=== PATIENT | male | born 1935 | race Caucasian/White ===

== ENCOUNTER 2020-03-21 08:52 | Outpatient (CLI) | payer MEDICARE, OTHER ==
[~2020-03-21] VITALS: Ht 172.7 cm; Wt 86.2 kg
[~2020-03-21 08:52] MED LIST: ADV50250 IH; ALBU8.5H4 IH; ASPI-41 PO; ATOR20TA PO; AZIT-63 PO; CALC-955 PO; CARCD120C PO; FOLI1TAB16 PO; GLUC100017; GUAI600T45 PO; METH2.5T17 PO; METO-395 PO; MULT-1179 PO; OMEP-84 PO; PANT-47 PO
[2020-03-21] MEDS ORDERED: albuterol 2.5 MG/3 ML nebule NEB PRN (09:40)
== END 2020-03-21 23:59 | disposition home or self-care (01) ==
LOC: RT 08:52
PROVIDERS: ATTEND Internal Medicine Cardiovascular Disease
DX: R94.2 Abnormal results of pulmonary function studies (principal); J44.9 Chronic obstructive pulmonary disease, unspecified
CPT/HCPCS: 94060; 94727; 94729; 94760

== ENCOUNTER 2020-03-28 08:08 | Day surgery (SDC) | payer MEDICARE, OTHER ==
[2020-03-28] VITALS (15 sets, daily range): BP systolic 138–182; BP diastolic 63–85
[~2020-03-28] VITALS: Ht 172.7 cm; Wt 88.1 kg
[2020-03-28] MEDS ORDERED: nitroGLYCERIN 0.4mg SUBLingual tab SL PRN (08:30)
[2020-03-28] MEDS ORDERED: normal saline 1,000 ML IV SCH (08:30)
[2020-03-28] MEDS ORDERED: LORazepam 0.5 MG tablet PO PRN (08:30)
[2020-03-28] MEDS ORDERED: diphenhydrAMINE 25mg capsule PO PRN (08:30)
[2020-03-28] MEDS ORDERED: FOLI0.8C PO (08:58)
[2020-03-28] MEDS ORDERED: ASPI-1264 PO ×2 (08:59→09:00)
[2020-03-28] MEDS ORDERED: DILT120T14 PO (09:01)
[2020-03-28] MEDS ORDERED: FURO-149 PO (09:04)
[2020-03-28] MEDS ORDERED: POTA10TA19 PO (09:04)
[2020-03-28 09:24] LABS: BASOPHILS % (AUTO) 0.6 % (0-1); EOSINOPHILS # (AUTO) 0.1 X10'3 (0-0.9); EOSINOPHILS % (AUTO) 1.6 % (0-6); HEMATOCRIT 36.8 % (42.0-52.0); HEMOGLOBIN 13.1 g/dl (14.0-17.9); LYMPHOCYTES # (AUTO) 0.7 X10'3 (1.1-4.8); LYMPHOCYTES % (AUTO) 15.2 % (21-51); MEAN CORPUSCULAR HEMOGLOBIN 32.4 PG (27.0-31.0); MEAN CORPUSCULAR HGB CONC 35.6 g/dL (33.0-36.5); MEAN PLATELET VOLUME 9.9 FL (7.4-10.4); MONOCYTES # (AUTO) 1.1 X10'3 (0-0.9); MONOCYTES % (AUTO) 23.5 % (2-12); NEUTROPHILS # (AUTO) 2.7 X10'3 (1.8-7.7); NEUTROPHILS % (AUTO) 59.1 % (42-75); PLATELET COUNT 85 X10'3 (140-440); RED BLOOD COUNT 4.04 X10'6 (4.70-6.10); RED CELL DISTRIBUTION WIDTH 12.4 % (11.5-14.5); WHITE BLOOD COUNT 4.5 X10'3 (4.5-11.0)
[2020-03-28 09:54] LABS: PLATELET ESTIMATE DECREASED; TOTAL CELLS COUNTED 100
[2020-03-28 09:59] LABS: PARTIAL THROMBOPLASTIN TIME 36 SECONDS (22-32)
[2020-03-28 10:08] LABS: ANION GAP 11 (8-16); BLOOD UREA NITROGEN 18 MG/DL (7-18); BUN/CREATININE RATIO 23.1 (5.4-32.0); CALCIUM 7.1 MG/DL (8.5-10.1); CHLORIDE 112 MMOL/L (99-107); CREATININE 0.78 MG/DL (0.60-1.10); GLUCOSE 81 MG/DL (70-104); POTASSIUM 3.5 MMOL/L (3.5-5.1); SODIUM 145 MMOL/L (135-145); TOTAL CARBON DIOXIDE 21.9 MMOL/L (24-32); eGFR > 90 ML/MIN
[2020-03-28] MEDS ORDERED: heparin 1,000 UNITS/NS 500ml 500 ML ONE ×4 (10:23→12:12)
[2020-03-28] MEDS ORDERED: midazolam 2 mg/2 ml injection ONE (10:23)
[2020-03-28] MEDS ORDERED: LIDOcaine 1% (10mg/ml)w/preservative injection 20ml MDV ONE ×2 (10:23→12:05)
[2020-03-28] MEDS ORDERED: iohexol 350MG/ML 100ml bottle IV ONE ×2 (10:23→12:12)
[2020-03-28] MEDS ORDERED: iohexol 350 MG/ML 50ML vial IV ONE ×3 (10:23→12:18)
[2020-03-28] MEDS ORDERED: fentaNYL/PF 50MCG/1 ML 2ML syringe ONE (10:23)
[2020-03-28] MEDS ORDERED: OXAZEpam 15mg capsule PO PRN (13:25)
[2020-03-28] MEDS ORDERED: proCHLORperazine 10 MG/2 ml inj IV PRN (13:25)
[2020-03-28] MEDS ORDERED: ondansetron/PF 4mg/2ml inj IV PRN (13:25)
[2020-03-28] MEDS ORDERED: HYDROcodone/acetaminophen 5mg/325mg tablet PO PRN (13:25)
[2020-03-28] MEDS ORDERED: HYDROcodone/acetaminophen 10/325mg tab PO PRN (13:25)
== END 2020-03-28 18:05 | disposition home or self-care (01) ==
LOC: SSTAY O 08:08
PROVIDERS: ATTEND Internal Medicine Cardiovascular Disease
DX: R94.39 Abnormal result of other cardiovascular function study (principal); I25.10 Atherosclerotic heart disease of native coronary artery without angina pectoris; I35.0 Nonrheumatic aortic (valve) stenosis; I25.82 Chronic total occlusion of coronary artery; I10 Essential (primary) hypertension; M06.9 Rheumatoid arthritis, unspecified; Z87.891 Personal history of nicotine dependence; Z79.01 Long term (current) use of anticoagulants; Z95.1 Presence of aortocoronary bypass graft; Z79.82 Long term (current) use of aspirin; Z79.899 Other long term (current) drug therapy; R06.02 Shortness of breath
CPT/HCPCS: 71046; 80048; 83880; 85025; 85610; 85730; 93005; 93461; 93567; 99152; 99153; C1769; J1644; J2001; J2250; J3010; J7030; Q0163; Q9967; 85007; A4620; A6258; C1751

== ENCOUNTER 2021-11-26 01:33 | Inpatient (IN) | payer MEDICARE, OTHER ==
[~2021-11-26] VITALS: Ht 172.7 cm; Wt 86.4 kg
[~2021-11-26 01:33] MED LIST changes: +ASPI-1264 PO; -ASPI-41 PO; -AZIT-63 PO; -CARCD120C PO; +DILT120T14 PO; +FOLI0.8C PO; -FOLI1TAB16 PO; +FURO-149 PO; -GUAI600T45 PO; -METH2.5T17 PO; -PANT-47 PO; +POTA-192 PO
[2021-11-26 02:08] LABS: ALANINE AMINOTRANSFERASE 49 U/L (12-78); ALBUMIN 4.1 G/DL (3.4-5.0); ALBUMIN/GLOBULIN RATIO 1.6 (1.1-1.5); ALKALINE PHOSPHATASE 68 IU/L (46-116); ANION GAP 14 (8-16); ASPARTATE AMINO TRANSFERASE 43 U/L (10-37); BILIRUBIN,TOTAL 3.7 MG/DL (0.1-1.0); BLOOD UREA NITROGEN 24 MG/DL (7-18); BUN/CREATININE RATIO 20.2 (5.4-32.0); CHLORIDE 106 MMOL/L (99-107); CREATININE 1.19 MG/DL (0.60-1.10); GLUCOSE 144 MG/DL (70-104); POTASSIUM 3.9 MMOL/L (3.5-5.1); SODIUM 144 MMOL/L (135-145); TOTAL CARBON DIOXIDE 23.6 MMOL/L (24-32); TOTAL PROTEIN 6.6 G/DL (6.4-8.2); eGFR 58 ML/MIN
[2021-11-26 02:20] LABS: EOSINOPHILS % (AUTO) 0.2 % (0-6); MEAN CORPUSCULAR HEMOGLOBIN 37.2 PG (27.0-31.0); MEAN PLATELET VOLUME 9.7 FL (7.4-10.4)
[2021-11-26 02:21] LABS: BASOPHILS % (AUTO) 0.1 % (0-1); HEMATOCRIT 23.6 % (42.0-52.0); LYMPHOCYTES # (AUTO) 1.7 X10'3 (1.1-4.8); LYMPHOCYTES % (AUTO) 16.3 % (21-51); MEAN CORPUSCULAR HGB CONC 33.9 g/dL (33.0-36.5); MEAN CORPUSCULAR VOLUME 109.8 FL (78-98); MONOCYTES # (AUTO) 2.2 X10'3 (0-0.9); MONOCYTES % (AUTO) 21.5 % (2-12); NEUTROPHILS # (AUTO) 6.4 X10'3 (1.8-7.7); NEUTROPHILS % (AUTO) 61.9 % (42-75); PLATELET COUNT 102 X10'3 (140-440); RED BLOOD COUNT 2.15 X10'6 (4.70-6.10); WHITE BLOOD COUNT 10.4 X10'3 (4.5-11.0)
[2021-11-26] MEDS ORDERED: nitroGLYCERIN 0.4mg SUBLingual tab SL PRN (02:50)
[2021-11-26] MEDS ORDERED: acetaminophen 325mg tablet PO PRN (02:50)
[2021-11-26] MEDS ORDERED: mag hydrox/Alum hydrox/simeth 30ml oral suspension PO PRN (02:50)
[2021-11-26 03:28] LABS: ANISOCYTOSIS 3+; NUCLEATED RED BLOOD CELLS 6 /100WBC (0-0); PLATELET ESTIMATE DECREASED; TOTAL CELLS COUNTED 100
[2021-11-26 03:31] LABS: POLYCHROMASIA FEW
[2021-11-26] MEDS: morphine 2 MG/ML inj. syringe IV PRN (04:17)
[2021-11-26] MEDS ORDERED: CARCD120C PO (05:24)
[2021-11-26] MEDS ORDERED: FLUT1DIS11 PO (05:24)
[2021-11-26] MEDS ORDERED: METO25TA6 PO (05:24)
--- NOTE | 2021-11-26 07:29 | NUR ---
Patient in room ED 3. I have received report from Alisha DEL CID and had the opportunity to ask questions and awaiting patients arrival.
[2021-11-26] MEDS ORDERED: SALMETEROL PO SCH (08:00)
[2021-11-26] MEDS ORDERED: aspirin 81mg, enteric-coated 1 TAB TABLET.DR PO SCH (08:00)
[2021-11-26] MEDS ORDERED: non-formulary drug (Glucosamine Sulfate 2Kcl (Glucosamine) 1 TAB) SCH (08:00)
[2021-11-26] MEDS ORDERED: furosemide 40mg tablet PO SCH (08:00)
[2021-11-26] MEDS: aspirin 325mg tablet PO SCH (08:00)
[2021-11-26] MEDS ORDERED: FLUTICASONE PO SCH (08:00)
[2021-11-26] MEDS ORDERED: non-formulary drug (Fluticasone/Salmeterol* (Advair 250-50 Diskus*) 1 INH) IH SCH (08:00)
[2021-11-26 09:00] VITALS: BP 154/72
[2021-11-26] MEDS: calcium carbonate/vitamin D3 tablet PO SCH ×2 (09:08→19:37)
[2021-11-26] MEDS: docusate sod 100mg capsule PO SCH ×2 (09:08→19:38)
[2021-11-26] MEDS: metoprolol tartrate 12.5mg (1/2 tablet) PO SCH (09:09)
[2021-11-26] MEDS: pantoprazole 40mg Tablet.DR PO SCH (09:09)
[2021-11-26] MEDS: multivitamins, therapeutics tablet PO SCH (09:10)
[2021-11-26] MEDS: potassium chloride 10mEq ER tablet PO SCH (09:10)
[2021-11-26] MEDS: diltiazem CD 120mg capsule (once-daily) PO SCH (09:10)
[2021-11-26] MEDS: albuterol 2.5 MG/3 ML nebule NEB SCH ×2 (09:39→20:37)
[2021-11-26] MEDS: budesonide 0.5mg/2ml UD nebule IH SCH ×2 (09:39→20:37)
[2021-11-26] MEDS: ondansetron/PF 4mg/2ml inj IV PRN (10:06)
[2021-11-26] MEDS ORDERED: furosemide 40mg/4ml inj IV ONE (10:10)
[2021-11-26 11:00] VITALS: BP 121/59
--- NOTE | 2021-11-26 14:41 | NUR ---
PAGER ID: [phone] MESSAGE: Chi, Tele 5482 Patient Firth [id number] states wants to be limited code, no chest compressions, no vent/intubation. Please update code. Thanks Paged Dr. Da Silva about code status SIVA Conn
[2021-11-26 15:00] VITALS: BP 115/64
[2021-11-26 18:00] VITALS: BP 115/64
--- NOTE | 2021-11-26 18:26 | NUR ---
Problems reprioritized. Patient report given, questions answered & plan of care reviewed with NEHEMIAS Osborne.
--- NOTE | 2021-11-26 18:35 | NUR ---
Gregory telephone worker [id number] patient humble [id number] clarified with staff that he is limited code. No intubation/ventilation and no chest compressions . Not DNR thanks Let gregory know during shift change after talking with patient to be clarified with Dr Da Silva . page was sent as above.
[2021-11-26] MEDS: furosemide 40mg/4ml inj IV SCH (19:37)
[2021-11-26] MEDS: atorvastatin 20mg tablet PO SCH (21:00)
[2021-11-26 22:00] VITALS: BP 110/56
[2021-11-27] MEDS: acetaminophen 325mg tablet PO PRN (00:45)
[2021-11-27 02:00] VITALS: BP 123/60
[2021-11-27] MEDS: albuterol 2.5 MG/3 ML nebule NEB SCH ×5 (02:34→21:00)
[2021-11-27] MEDS: morphine 2 MG/ML inj. syringe IV PRN ×2 (03:17→20:09)
[2021-11-27 06:00] VITALS: BP 154/62
--- NOTE | 2021-11-27 06:29 | NUR ---
Patient in room U 3023. I have received report from [place] DEL CID traveler and had the opportunity to ask questions and assume patient care.
[2021-11-27 06:45] LABS: BASOPHILS % (AUTO) 0.3 % (0-1); EOSINOPHILS % (AUTO) 0.2 % (0-6); MEAN CORPUSCULAR HGB CONC 34.4 g/dL (33.0-36.5); MONOCYTES # (AUTO) 2.6 X10'3 (0-0.9); RED BLOOD COUNT 1.98 X10'6 (4.70-6.10); WHITE BLOOD COUNT 12.3 X10'3 (4.5-11.0)
[2021-11-27 06:47] LABS: HEMATOCRIT 22.2 % (42.0-52.0); HEMOGLOBIN 7.6 g/dl (14.0-17.9); LYMPHOCYTES # (AUTO) 1.4 X10'3 (1.1-4.8); LYMPHOCYTES % (AUTO) 11.7 % (21-51); MEAN CORPUSCULAR HEMOGLOBIN 38.6 PG (27.0-31.0); MEAN CORPUSCULAR VOLUME 112.3 FL (78-98); MEAN PLATELET VOLUME 9.7 FL (7.4-10.4); MONOCYTES % (AUTO) 20.9 % (2-12); NEUTROPHILS # (AUTO) 8.2 X10'3 (1.8-7.7); NEUTROPHILS % (AUTO) 66.9 % (42-75); RED CELL DISTRIBUTION WIDTH 20.6 % (11.5-14.5)
[2021-11-27 06:50] LABS: PLATELET COUNT 102 X10'3 (140-440)
[2021-11-27 06:52] LABS: ALBUMIN 4.2 G/DL (3.4-5.0); ANION GAP 11 (8-16); BLOOD UREA NITROGEN 32 MG/DL (7-18); BUN/CREATININE RATIO 23.7 (5.4-32.0); CALCIUM 9.7 MG/DL (8.5-10.1); CHLORIDE 105 MMOL/L (99-107); CREATININE 1.35 MG/DL (0.60-1.10); GLUCOSE 115 MG/DL (70-104); HDL CHOLESTEROL 28 MG/DL (35-60); LDL CHOLESTEROL 47 MG/DL (50-100); POTASSIUM 3.7 MMOL/L (3.5-5.1); SODIUM 143 MMOL/L (135-145); TOTAL CARBON DIOXIDE 26.8 MMOL/L (24-32); eGFR 50 ML/MIN
[2021-11-27 07:00] LABS: CHOLESTEROL 83 MG/DL (0-200); TRIGLYCERIDES 149 MG/DL (20-135)
[2021-11-27 07:23] LABS: NUCLEATED RED BLOOD CELLS 4 /100WBC (0-0); PLATELET ESTIMATE DECREASED; TOTAL CELLS COUNTED 100
[2021-11-27 07:24] LABS: ANISOCYTOSIS 3+; POLYCHROMASIA 1+
[2021-11-27] MEDS: aspirin 325mg tablet PO SCH (07:56)
[2021-11-27] MEDS: docusate sod 100mg capsule PO SCH ×2 (07:57→19:37)
[2021-11-27] MEDS: calcium carbonate/vitamin D3 tablet PO SCH ×2 (07:57→19:37)
[2021-11-27] MEDS: diltiazem CD 120mg capsule (once-daily) PO SCH (07:57)
[2021-11-27] MEDS: multivitamins, therapeutics tablet PO SCH (07:57)
[2021-11-27] MEDS: pantoprazole 40mg Tablet.DR PO SCH (07:58)
[2021-11-27] MEDS: metoprolol tartrate 12.5mg (1/2 tablet) PO SCH (08:00)
[2021-11-27] MEDS: furosemide 40mg/4ml inj IV SCH (08:01)
--- NOTE | 2021-11-27 09:07 | NUR ---
Malnutrition consult: Pt admitted w/ chest pain and anemia per EMR. Pt reports 2-13lb wt loss per MST, though current wt is consistent w/ wts from previous visits w/ earliest wt 91kg in 2009; pt appears to have relatively stable wt since then. Currently on Heart healthy diet pending PO intake. No edema noted and has normal muscle strength. At this time pt does not meet minimum criteria for malnutrition. Will continue to monitor. Addendum: 11/27/21 at [address] Amended: Links added.
[2021-11-27] MEDS: budesonide 0.5mg/2ml UD nebule IH SCH ×2 (09:28→21:00)
[2021-11-27 10:35] LABS: ALANINE AMINOTRANSFERASE 49 U/L (12-78); ALKALINE PHOSPHATASE 65 IU/L (46-116); ASPARTATE AMINO TRANSFERASE 46 U/L (10-37); BILIRUBIN,DIRECT 0.5 MG/DL (0-0.3)
[2021-11-27 10:37] LABS: ALBUMIN/GLOBULIN RATIO 1.8 (1.1-1.5); TOTAL PROTEIN 6.6 G/DL (6.4-8.2)
[2021-11-27 11:00] VITALS: BP 142/59
[2021-11-27 15:00] VITALS: BP 136/60
[2021-11-27] MEDS ORDERED: CefTRIAXone 2gm/D5W 50ml BAG 50 ML IV SCH (15:35)
--- NOTE | 2021-11-27 17:58 | NUR ---
PAGER ID: [phone] MESSAGE: bj Espino#[phone]- 24hr telli expiring today, would you like to keep it on another 24hrs?? please advise. Barbara Roque [facility] [phone]
[2021-11-27 18:00] VITALS: BP 150/59
--- NOTE | 2021-11-27 18:36 | NUR ---
Problems reprioritized. Patient report given, questions answered & plan of care reviewed with Brandon Paige Traveler.
[2021-11-27] MEDS: atorvastatin 20mg tablet PO SCH (20:21)
[2021-11-27 22:00] VITALS: BP 137/59
[2021-11-28] MEDS: albuterol 2.5 MG/3 ML nebule NEB SCH ×4 (03:00→20:28)
[2021-11-28] MEDS: morphine 2 MG/ML inj. syringe IV PRN ×2 (03:23→21:13)
[2021-11-28 06:31] LABS: ANION GAP 11 (8-16); BLOOD UREA NITROGEN 34 MG/DL (7-18); CHLORIDE 103 MMOL/L (99-107); CREATININE 1.17 MG/DL (0.60-1.10); GLUCOSE 109 MG/DL (70-104); POTASSIUM 3.5 MMOL/L (3.5-5.1); SODIUM 142 MMOL/L (135-145); TOTAL CARBON DIOXIDE 28.5 MMOL/L (24-32)
[2021-11-28 06:32] LABS: BUN/CREATININE RATIO 29.1 (5.4-32.0); CALCIUM 9.8 MG/DL (8.5-10.1); eGFR 59 ML/MIN
[2021-11-28 06:59] LABS: LYMPHOCYTES # (AUTO) 1.4 X10'3 (1.1-4.8); PLATELET COUNT 97 X10'3 (140-440); RED BLOOD COUNT 1.96 X10'6 (4.70-6.10)
[2021-11-28 07:00] VITALS: BP 148/63
[2021-11-28 07:00] LABS: BASOPHILS % (AUTO) 0.4 % (0-1); EOSINOPHILS % (AUTO) 0.2 % (0-6); HEMATOCRIT 22.1 % (42.0-52.0); HEMOGLOBIN 7.4 g/dl (14.0-17.9); MEAN CORPUSCULAR HGB CONC 33.7 g/dL (33.0-36.5); MEAN CORPUSCULAR VOLUME 112.9 FL (78-98); MEAN PLATELET VOLUME 10.3 FL (7.4-10.4); MONOCYTES # (AUTO) 2.8 X10'3 (0-0.9); NEUTROPHILS # (AUTO) 8.4 X10'3 (1.8-7.7); NEUTROPHILS % (AUTO) 66.4 % (42-75); RED CELL DISTRIBUTION WIDTH 20.3 % (11.5-14.5); WHITE BLOOD COUNT 12.6 X10'3 (4.5-11.0)
[2021-11-28 07:25] LABS: ANISOCYTOSIS 3+; LARGE PLATELETS FEW; NUCLEATED RED BLOOD CELLS 8 /100WBC (0-0); PLATELET ESTIMATE DECREASED; TOTAL CELLS COUNTED 100
[2021-11-28 07:26] LABS: POLYCHROMASIA 2+; TEAR DROP CELLS FEW
[2021-11-28] MEDS: budesonide 0.5mg/2ml UD nebule IH SCH ×2 (07:39→20:28)
[2021-11-28] MEDS: CefTRIAXone 2gm/NS 100ml IVPB 100 ML IV SCH (08:02)
[2021-11-28] MEDS: calcium carbonate/vitamin D3 tablet PO SCH ×2 (08:03→20:18)
[2021-11-28] MEDS: multivitamins, therapeutics tablet PO SCH (08:03)
[2021-11-28] MEDS: aspirin 325mg tablet PO SCH (08:03)
[2021-11-28] MEDS: docusate sod 100mg capsule PO SCH ×2 (08:03→20:18)
[2021-11-28] MEDS: potassium chloride 10mEq ER tablet PO SCH (08:03)
[2021-11-28] MEDS: diltiazem CD 120mg capsule (once-daily) PO SCH (08:03)
[2021-11-28] MEDS: pantoprazole 40mg Tablet.DR PO SCH (08:03)
[2021-11-28] MEDS: metoprolol tartrate 12.5mg (1/2 tablet) PO SCH (08:04)
[2021-11-28 11:00] VITALS: BP 134/63
[2021-11-28] MEDS ORDERED: VANCOmycin 2,000MG in NS 500ml IV soln IV ONE (13:00)
[2021-11-28 15:00] VITALS: BP 150/57
[2021-11-28 18:00] VITALS: BP 142/69
[2021-11-28] MEDS: atorvastatin 20mg tablet PO SCH (20:18)
[2021-11-28 22:00] VITALS: BP 139/60
[2021-11-29 02:00] VITALS: BP 143/77
[2021-11-29] MEDS: albuterol 2.5 MG/3 ML nebule NEB SCH ×4 (02:55→20:53)
[2021-11-29 06:00] VITALS: BP 102/63
--- NOTE | 2021-11-29 06:24 | NUR ---
Change of shift report given to NEHEMIAS Medrano Pt stable. No acute complaints
--- NOTE | 2021-11-29 06:30 | NUR ---
Patient in room PCU 3023. I have received report from NEHEMIAS Robertson and had the opportunity to ask questions and assume patient care.
[2021-11-29 07:01] LABS: LYMPHOCYTES # (AUTO) 1.1 X10'3 (1.1-4.8); MEAN PLATELET VOLUME 9.8 FL (7.4-10.4); MONOCYTES # (AUTO) 2.6 X10'3 (0-0.9)
[2021-11-29 07:03] LABS: BASOPHILS % (AUTO) 0.2 % (0-1); EOSINOPHILS % (AUTO) 0.1 % (0-6); LYMPHOCYTES % (AUTO) 8.7 % (21-51); MEAN CORPUSCULAR HEMOGLOBIN 38.9 PG (27.0-31.0); MEAN CORPUSCULAR HGB CONC 33.7 g/dL (33.0-36.5); MEAN CORPUSCULAR VOLUME 115.5 FL (78-98); MONOCYTES % (AUTO) 20.6 % (2-12); NEUTROPHILS % (AUTO) 70.4 % (42-75); PLATELET COUNT 91 X10'3 (140-440); RED BLOOD COUNT 1.73 X10'6 (4.70-6.10); RED CELL DISTRIBUTION WIDTH 20.7 % (11.5-14.5); WHITE BLOOD COUNT 12.7 X10'3 (4.5-11.0)
[2021-11-29 07:05] LABS: ALBUMIN 3.7 G/DL (3.4-5.0); ANION GAP 10 (8-16); BLOOD UREA NITROGEN 35 MG/DL (7-18); BUN/CREATININE RATIO 30.4 (5.4-32.0); CALCIUM 9.2 MG/DL (8.5-10.1); CHLORIDE 105 MMOL/L (99-107); CREATININE 1.15 MG/DL (0.60-1.10); GLUCOSE 107 MG/DL (70-104); POTASSIUM 3.5 MMOL/L (3.5-5.1); SODIUM 142 MMOL/L (135-145); TOTAL CARBON DIOXIDE 27.4 MMOL/L (24-32); eGFR 60 ML/MIN
[2021-11-29 07:07] LABS: HEMOGLOBIN 6.7 g/dl (14.0-17.9)
--- NOTE | 2021-11-29 07:11 | NUR ---
PAGER ID: [phone] MESSAGE: Room: 3023A: [place]: Pt's hemoglobin is 6.7 and hematocrit: 20.0. NEHEMIAS Tapia [phone]
[2021-11-29 07:19] LABS: ANISOCYTOSIS 3+; NUCLEATED RED BLOOD CELLS 6 /100WBC (0-0); PLATELET ESTIMATE DECREASED; TOTAL CELLS COUNTED 100
[2021-11-29 07:20] LABS: POLYCHROMASIA 3+
[2021-11-29] MEDS: pantoprazole 40mg Tablet.DR PO SCH (08:00)
[2021-11-29] MEDS: multivitamins, therapeutics tablet PO SCH (08:00)
[2021-11-29] MEDS: metoprolol tartrate 12.5mg (1/2 tablet) PO SCH (08:00)
[2021-11-29] MEDS: CefTRIAXone 2gm/NS 100ml IVPB 100 ML IV SCH (08:00)
[2021-11-29] MEDS: diltiazem CD 120mg capsule (once-daily) PO SCH (08:00)
[2021-11-29] MEDS: calcium carbonate/vitamin D3 tablet PO SCH ×2 (08:00→20:45)
[2021-11-29] MEDS: docusate sod 100mg capsule PO SCH ×2 (08:00→20:45)
[2021-11-29] MEDS: aspirin 325mg tablet PO SCH (08:00)
--- NOTE | 2021-11-29 08:06 | NUR ---
PAGER ID: [phone] MESSAGE: Room: 1257N: [place]: Would you like to order blood? NEHEMIAS Tapia [phone]
[2021-11-29] MEDS: budesonide 0.5mg/2ml UD nebule IH SCH ×2 (08:34→20:53)
[2021-11-29 09:43] LABS: HAPTOGLOBIN <10 mg/dL (38-329)
[2021-11-29] MEDS: acetaminophen 325mg tablet PO PRN (10:02)
--- NOTE | 2021-11-29 10:30 | NUR ---
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 They will let me know the result of this test as soon as they can. Regina, RN [phone]
[2021-11-29 11:00] VITALS: BP 145/63
[2021-11-29] MEDS: vancomycin/NS 1 GM ADD-VANTAGE 250 ML IV SCH (13:04)
[2021-11-29 15:00] VITALS: BP 116/59
[2021-11-29] MEDS: morphine 2 MG/ML inj. syringe IV PRN (16:02)
[2021-11-29 18:00] VITALS: BP 155/56
--- NOTE | 2021-11-29 18:24 | NUR ---
Problems reprioritized. Patient report given, questions answered & plan of care reviewed with NEHEMIAS Osborne.
[2021-11-29] MEDS: atorvastatin 20mg tablet PO SCH (20:45)
[2021-11-29] MEDS: magnesium hydroxide 30ml (MOM) UD suspension PO PRN (20:46)
[2021-11-29 22:00] VITALS: BP 143/56
[2021-11-30 02:00] VITALS: BP 145/56
--- NOTE | 2021-11-30 02:10 | NUR ---
Called lab to follow-up on pts blood from [place]. Lab states we are still waiting and they will inform me when the blood has arrived.
[2021-11-30] MEDS: albuterol 2.5 MG/3 ML nebule NEB SCH ×4 (02:56→22:31)
[2021-11-30 06:00] VITALS: BP 151/66
--- NOTE | 2021-11-30 06:18 | NUR ---
Informed by lab that the pts blood has arrived to the blood bank. Informed blood bank that I will relay this information to day shift RN.
[2021-11-30 07:07] LABS: EOSINOPHILS % (AUTO) 0.3 % (0-6); HEMOGLOBIN 7.5 g/dl (14.0-17.9)
[2021-11-30 07:11] LABS: BASOPHILS % (AUTO) 0.2 % (0-1); HEMATOCRIT 22.6 % (42.0-52.0); LYMPHOCYTES # (AUTO) 1.1 X10'3 (1.1-4.8); MEAN CORPUSCULAR HEMOGLOBIN 38.9 PG (27.0-31.0); MEAN CORPUSCULAR VOLUME 117.7 FL (78-98); MEAN PLATELET VOLUME 9.7 FL (7.4-10.4); MONOCYTES # (AUTO) 2.7 X10'3 (0-0.9); NEUTROPHILS # (AUTO) 8.8 X10'3 (1.8-7.7); NEUTROPHILS % (AUTO) 69.5 % (42-75); PLATELET COUNT 99 X10'3 (140-440); RED BLOOD COUNT 1.92 X10'6 (4.70-6.10); RED CELL DISTRIBUTION WIDTH 20.9 % (11.5-14.5); WHITE BLOOD COUNT 12.6 X10'3 (4.5-11.0)
[2021-11-30 07:24] LABS: ALANINE AMINOTRANSFERASE 38 U/L (12-78); ALBUMIN 4.1 G/DL (3.4-5.0); ALKALINE PHOSPHATASE 71 IU/L (46-116); ANION GAP 9 (8-16); ASPARTATE AMINO TRANSFERASE 54 U/L (10-37); BILIRUBIN,TOTAL 5.2 MG/DL (0.1-1.0); BLOOD UREA NITROGEN 34 MG/DL (7-18); BUN/CREATININE RATIO 31.5 (5.4-32.0); CALCIUM 9.4 MG/DL (8.5-10.1); CHLORIDE 106 MMOL/L (99-107); CREATININE 1.08 MG/DL (0.60-1.10); GLUCOSE 106 MG/DL (70-104); POTASSIUM 3.6 MMOL/L (3.5-5.1); SODIUM 144 MMOL/L (135-145); TOTAL CARBON DIOXIDE 28.8 MMOL/L (24-32); eGFR 65 ML/MIN
[2021-11-30 07:25] LABS: ALBUMIN/GLOBULIN RATIO 1.6 (1.1-1.5); TOTAL PROTEIN 6.6 G/DL (6.4-8.2)
[2021-11-30 07:49] LABS: ANISOCYTOSIS 3+; NUCLEATED RED BLOOD CELLS 5 /100WBC (0-0); PLATELET ESTIMATE DECREASED; TOTAL CELLS COUNTED 100
[2021-11-30 07:50] LABS: POIKILOCYTOSIS FEW; POLYCHROMASIA 3+; TARGET CELLS FEW
[2021-11-30] MEDS: potassium chloride 10mEq ER tablet PO SCH (08:31)
[2021-11-30] MEDS: docusate sod 100mg capsule PO SCH ×2 (08:31→19:51)
[2021-11-30] MEDS: diltiazem CD 120mg capsule (once-daily) PO SCH (08:31)
[2021-11-30] MEDS: metoprolol tartrate 12.5mg (1/2 tablet) PO SCH (08:31)
[2021-11-30] MEDS: aspirin 325mg tablet PO SCH (08:31)
[2021-11-30] MEDS: multivitamins, therapeutics tablet PO SCH (08:32)
[2021-11-30] MEDS: calcium carbonate/vitamin D3 tablet PO SCH ×2 (08:32→19:52)
[2021-11-30] MEDS: pantoprazole 40mg Tablet.DR PO SCH (08:32)
[2021-11-30] MEDS: CefTRIAXone 2gm/NS 100ml IVPB 100 ML IV SCH (08:33)
[2021-11-30] MEDS: budesonide 0.5mg/2ml UD nebule IH SCH ×2 (09:00→21:00)
[2021-11-30] MEDS: acetaminophen 325mg tablet PO PRN (09:58)
[2021-11-30 11:00] VITALS: BP 126/57
[2021-11-30 11:18] LABS: RHEUM FACTOR QUAL REFLEX TITER NEGATIVE (Neg)
[2021-11-30] MEDS: vancomycin/NS 1 GM ADD-VANTAGE 250 ML IV SCH (13:44)
[2021-11-30 17:00] VITALS: BP 137/62
[2021-11-30 18:00] VITALS: BP 134/50
[2021-11-30] MEDS: predniSONE 20 mg tablet PO SCH (19:52)
[2021-11-30] MEDS: atorvastatin 20mg tablet PO SCH (19:52)
[2021-11-30] MEDS: morphine 2 MG/ML inj. syringe IV PRN (21:54)
[2021-11-30 22:30] VITALS: BP 149/69
[2021-12-01] MEDS: albuterol 2.5 MG/3 ML nebule NEB SCH ×4 (01:33→20:02)
[2021-12-01 03:00] VITALS: BP 137/74
[2021-12-01 06:00] VITALS: BP 156/56
[2021-12-01 06:53] LABS: ALBUMIN 3.8 G/DL (3.4-5.0); ANION GAP 10 (8-16); BLOOD UREA NITROGEN 35 MG/DL (7-18); BUN/CREATININE RATIO 32.1 (5.4-32.0); CALCIUM 9.4 MG/DL (8.5-10.1); CHLORIDE 106 MMOL/L (99-107); CREATININE 1.09 MG/DL (0.60-1.10); GLUCOSE 142 MG/DL (70-104); POTASSIUM 4.2 MMOL/L (3.5-5.1); SODIUM 143 MMOL/L (135-145); eGFR 64 ML/MIN
[2021-12-01 07:06] LABS: EOSINOPHILS % (AUTO) 0.1 % (0-6); MEAN PLATELET VOLUME 10.1 FL (7.4-10.4); WHITE BLOOD COUNT 13.1 X10'3 (4.5-11.0)
[2021-12-01 07:07] LABS: BASOPHILS % (AUTO) 0.2 % (0-1); LYMPHOCYTES % (AUTO) 7.7 % (21-51); MEAN CORPUSCULAR HEMOGLOBIN 38.4 PG (27.0-31.0); MEAN CORPUSCULAR HGB CONC 32.6 g/dL (33.0-36.5); MEAN CORPUSCULAR VOLUME 117.9 FL (78-98); MONOCYTES # (AUTO) 1.2 X10'3 (0-0.9); MONOCYTES % (AUTO) 9.4 % (2-12); NEUTROPHILS # (AUTO) 10.8 X10'3 (1.8-7.7); NEUTROPHILS % (AUTO) 82.6 % (42-75); PLATELET COUNT 98 X10'3 (140-440); RED BLOOD COUNT 1.82 X10'6 (4.70-6.10); RED CELL DISTRIBUTION WIDTH 19.8 % (11.5-14.5)
[2021-12-01 07:15] LABS: HEMATOCRIT 21.5 % (42.0-52.0)
[2021-12-01 07:46] LABS: NUCLEATED RED BLOOD CELLS 19 /100WBC (0-0); TOTAL CELLS COUNTED 100
[2021-12-01 07:51] LABS: ANISOCYTOSIS 2+; PLATELET ESTIMATE DECREASED; POLYCHROMASIA 3+; SPHEROCYTES 1+; STOMATOCYTES FEW; TEAR DROP CELLS 1+
[2021-12-01 07:52] LABS: LARGE PLATELETS FEW
[2021-12-01] MEDS: budesonide 0.5mg/2ml UD nebule IH SCH ×2 (09:00→20:03)
[2021-12-01] MEDS: aspirin 325mg tablet PO SCH (09:53)
[2021-12-01] MEDS: CefTRIAXone 2gm/NS 100ml IVPB 100 ML IV SCH (09:53)
[2021-12-01] MEDS: multivitamins, therapeutics tablet PO SCH (09:53)
[2021-12-01] MEDS: docusate sod 100mg capsule PO SCH ×2 (09:53→19:54)
[2021-12-01] MEDS: diltiazem CD 120mg capsule (once-daily) PO SCH (09:53)
[2021-12-01] MEDS: predniSONE 20 mg tablet PO SCH (09:53)
[2021-12-01] MEDS: calcium carbonate/vitamin D3 tablet PO SCH ×2 (09:53→19:54)
[2021-12-01] MEDS: pantoprazole 40mg Tablet.DR PO SCH (09:54)
[2021-12-01] MEDS: metoprolol tartrate 12.5mg (1/2 tablet) PO SCH (09:54)
--- NOTE | 2021-12-01 10:44 | NUR ---
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 Currently on Heart Healthy diet w/ avg intake 67% x 11 meals partially meeting needs. Recommend liberalizing to Regular diet in view of age and lipid panel. Will also provide smoothies BID for additional calories/protein. LBM 11/25 receiving routine and PRN bowel care. Will continue to monitor. Recs; 1. Liberalize to Regular diet 2. Smoothies BIDBD 3. Routine bowel care; 5 days constipation 4. Weekly wts Addendum: 12/01/21 at [address] Amended: Links added.
[2021-12-01 11:00] VITALS: BP 148/63
[2021-12-01] MEDS ORDERED: VANCOMYCIN LEVEL IV ONE (12:30)
[2021-12-01] MEDS: vancomycin/NS 1 GM ADD-VANTAGE 250 ML IV SCH (13:26)
[2021-12-01 15:00] VITALS: BP 157/67
[2021-12-01 18:00] VITALS: BP 149/68
[2021-12-01] MEDS: atorvastatin 20mg tablet PO SCH (19:54)
[2021-12-01 22:00] VITALS: BP 142/64
[2021-12-01] MEDS: morphine 2 MG/ML inj. syringe IV PRN (22:34)
[2021-12-01] MEDS: magnesium hydroxide 30ml (MOM) UD suspension PO PRN (22:49)
[2021-12-02 02:00] VITALS: BP 160/71
[2021-12-02] MEDS: albuterol 2.5 MG/3 ML nebule NEB SCH ×4 (02:59→21:00)
[2021-12-02] MEDS: potassium chloride 10mEq ER tablet PO SCH (08:00)
[2021-12-02] MEDS ORDERED: predniSONE 20 mg tablet PO SCH (08:00)
[2021-12-02 08:44] LABS: EOSINOPHILS % (AUTO) 0 % (0-6); HEMATOCRIT 22.8 % (42.0-52.0); HEMOGLOBIN 7.2 g/dl (14.0-17.9)
[2021-12-02 08:46] LABS: BASOPHILS % (AUTO) 0.1 % (0-1); LYMPHOCYTES % (AUTO) 10.7 % (21-51); MEAN CORPUSCULAR HGB CONC 31.4 g/dL (33.0-36.5); MEAN CORPUSCULAR VOLUME 120.9 FL (78-98); MEAN PLATELET VOLUME 9.8 FL (7.4-10.4); MONOCYTES # (AUTO) 3.8 X10'3 (0-0.9); MONOCYTES % (AUTO) 20.7 % (2-12); NEUTROPHILS # (AUTO) 12.6 X10'3 (1.8-7.7); NEUTROPHILS % (AUTO) 68.5 % (42-75); PLATELET COUNT 110 X10'3 (140-440); RED BLOOD COUNT 1.88 X10'6 (4.70-6.10); RED CELL DISTRIBUTION WIDTH 22.1 % (11.5-14.5); WHITE BLOOD COUNT 18.5 X10'3 (4.5-11.0)
[2021-12-02 09:00] LABS: ALBUMIN 3.8 G/DL (3.4-5.0); ANION GAP 10 (8-16); BLOOD UREA NITROGEN 36 MG/DL (7-18); BUN/CREATININE RATIO 31.3 (5.4-32.0); CALCIUM 9.2 MG/DL (8.5-10.1); CHLORIDE 105 MMOL/L (99-107); CREATININE 1.15 MG/DL (0.60-1.10); GLUCOSE 140 MG/DL (70-104); POTASSIUM 3.8 MMOL/L (3.5-5.1); SODIUM 141 MMOL/L (135-145); TOTAL CARBON DIOXIDE 25.8 MMOL/L (24-32); eGFR 60 ML/MIN
[2021-12-02] MEDS: budesonide 0.5mg/2ml UD nebule IH SCH ×2 (09:00→21:00)
[2021-12-02 09:16] LABS: NUCLEATED RED BLOOD CELLS 12 /100WBC (0-0); TOTAL CELLS COUNTED 100
[2021-12-02 09:17] LABS: ANISOCYTOSIS 3+; PLATELET ESTIMATE DECREASED; POLYCHROMASIA 3+; SPHEROCYTES 1+; TEAR DROP CELLS FEW
[2021-12-02] MEDS: multivitamins, therapeutics tablet PO SCH (09:35)
[2021-12-02] MEDS: CefTRIAXone 2gm/NS 100ml IVPB 100 ML IV SCH (09:35)
[2021-12-02] MEDS: pantoprazole 40mg Tablet.DR PO SCH (09:36)
[2021-12-02] MEDS: diltiazem CD 120mg capsule (once-daily) PO SCH (09:36)
[2021-12-02] MEDS: metoprolol tartrate 12.5mg (1/2 tablet) PO SCH (09:36)
[2021-12-02] MEDS: calcium carbonate/vitamin D3 tablet PO SCH ×2 (09:36→20:21)
[2021-12-02] MEDS: docusate sod 100mg capsule PO SCH ×2 (09:36→20:21)
[2021-12-02] MEDS: aspirin 325mg tablet PO SCH (09:36)
[2021-12-02] MEDS: acetaminophen 325mg tablet PO PRN (09:38)
[2021-12-02] MEDS: VANCOmycin 1250MG/NS 250ml Bag 250 ML IV SCH (13:04)
[2021-12-02 18:00] VITALS: BP 148/62
--- NOTE | 2021-12-02 18:58 | NUR ---
Patient in room PCU 3023. I have received report from Gonzalo DEL CID and had the opportunity to ask questions and assume patient care.
--- NOTE | 2021-12-02 18:59 | NUR ---
Patient in room PCU 3023. I have received report from maritza kevin and had the opportunity to ask questions and assume patient care.
[2021-12-02] MEDS: morphine 2 MG/ML inj. syringe IV PRN (20:23)
[2021-12-02] MEDS: atorvastatin 20mg tablet PO SCH (21:21)
[2021-12-02 22:00] VITALS: BP 153/65
--- NOTE | 2021-12-02 23:55 | NUR ---
I have reviewed and agree with all interventions, assessments performed and documented by Aleksander PANIAGUA.
[2021-12-03] VITALS (14 sets, daily range): BP systolic 103–153; BP diastolic 46–76
[2021-12-03] MEDS: morphine 2 MG/ML inj. syringe IV PRN (02:25)
[2021-12-03] MEDS: albuterol 2.5 MG/3 ML nebule NEB SCH ×5 (03:00→19:50)
[2021-12-03 04:37] LABS: ALBUMIN 3.6 G/DL (3.4-5.0); ANION GAP 10 (8-16); BASOPHILS % (AUTO) 0.2 % (0-1); BLOOD UREA NITROGEN 38 MG/DL (7-18); BUN/CREATININE RATIO 34.9 (5.4-32.0); CALCIUM 9.1 MG/DL (8.5-10.1); CHLORIDE 106 MMOL/L (99-107); CREATININE 1.09 MG/DL (0.60-1.10); EOSINOPHILS % (AUTO) 0.1 % (0-6); GLUCOSE 109 MG/DL (70-104); LYMPHOCYTES # (AUTO) 1.3 X10'3 (1.1-4.8); LYMPHOCYTES % (AUTO) 8.2 % (21-51); MEAN CORPUSCULAR HEMOGLOBIN 38.4 PG (27.0-31.0); MEAN CORPUSCULAR HGB CONC 31.9 g/dL (33.0-36.5); MEAN CORPUSCULAR VOLUME 120.3 FL (78-98); MEAN PLATELET VOLUME 9.8 FL (7.4-10.4); MONOCYTES # (AUTO) 3.3 X10'3 (0-0.9); MONOCYTES % (AUTO) 21.3 % (2-12); NEUTROPHILS # (AUTO) 10.9 X10'3 (1.8-7.7); NEUTROPHILS % (AUTO) 70.2 % (42-75); PLATELET COUNT 93 X10'3 (140-440); RED BLOOD COUNT 1.63 X10'6 (4.70-6.10); RED CELL DISTRIBUTION WIDTH 20.9 % (11.5-14.5); SODIUM 143 MMOL/L (135-145); TOTAL CARBON DIOXIDE 26.7 MMOL/L (24-32); WHITE BLOOD COUNT 15.5 X10'3 (4.5-11.0); eGFR 64 ML/MIN
[2021-12-03 04:57] LABS: HEMATOCRIT 19.6 % (42.0-52.0); HEMOGLOBIN 6.3 g/dl (14.0-17.9)
--- NOTE | 2021-12-03 05:50 | NUR ---
Pt has critical H (6.3)&H(19.6) called into Dr. Reyes. Order for Type and Screen as well as 2 units of PRBC ordered
--- NOTE | 2021-12-03 06:30 | NUR ---
Problems reprioritized. Patient report given, questions answered & plan of care reviewed with israel kevin.
--- NOTE | 2021-12-03 06:30 | NUR ---
Problems reprioritized. Patient report given, questions answered & plan of care reviewed with Rosa DEL CID.
[2021-12-03] MEDS: aspirin 325mg tablet PO SCH (08:03)
[2021-12-03] MEDS: diltiazem CD 120mg capsule (once-daily) PO SCH (08:05)
[2021-12-03] MEDS: metoprolol tartrate 12.5mg (1/2 tablet) PO SCH (08:05)
[2021-12-03] MEDS: docusate sod 100mg capsule PO SCH ×2 (08:06→20:07)
[2021-12-03] MEDS: CefTRIAXone 2gm/NS 100ml IVPB 100 ML IV SCH (08:06)
[2021-12-03] MEDS: multivitamins, therapeutics tablet PO SCH (08:06)
[2021-12-03] MEDS: pantoprazole 40mg Tablet.DR PO SCH (08:06)
[2021-12-03] MEDS: calcium carbonate/vitamin D3 tablet PO SCH ×2 (08:06→20:05)
[2021-12-03 08:29] LABS: NUCLEATED RED BLOOD CELLS 13 /100WBC (0-0); TOTAL CELLS COUNTED 100
[2021-12-03 08:32] LABS: ANISOCYTOSIS 3+; PLATELET ESTIMATE DECREASED; POLYCHROMASIA 3+
[2021-12-03] MEDS: budesonide 0.5mg/2ml UD nebule IH SCH ×2 (08:37→19:49)
[2021-12-03] MEDS: ondansetron/PF 4mg/2ml inj IV PRN (09:06)
[2021-12-03] MEDS: VANCOmycin 1250MG/NS 250ml Bag 250 ML IV SCH (14:22)
[2021-12-03] MEDS: methylPREDNISolone sod succ 125mg/2ml vial IV SCH ×2 (16:34→20:10)
--- NOTE | 2021-12-03 18:36 | NUR ---
Patient in room PCU 3023. I have received report from Rosa DEL CID and had the opportunity to ask questions and assume patient care.
--- NOTE | 2021-12-03 19:53 | NUR ---
Patient in room PCU 3023. I have received report from nettie kevin and had the opportunity to ask questions and assume patient care.
[2021-12-03] MEDS: acetaminophen 325mg tablet PO PRN (20:06)
[2021-12-03] MEDS: atorvastatin 20mg tablet PO SCH (20:07)
[2021-12-03 21:17] LABS: HEMATOCRIT 24.6 % (42.0-52.0); MEAN CORPUSCULAR HEMOGLOBIN 34.1 PG (27.0-31.0); MEAN CORPUSCULAR HGB CONC 32.7 g/dL (33.0-36.5); MEAN CORPUSCULAR VOLUME 104.4 FL (78-98); MEAN PLATELET VOLUME 9.9 FL (7.4-10.4); PLATELET COUNT 88 X10'3 (140-440); RED BLOOD COUNT 2.35 X10'6 (4.70-6.10); RED CELL DISTRIBUTION WIDTH 30.8 % (11.5-14.5)
[2021-12-04 01:14] LABS: WHITE BLOOD COUNT 17.7 X10'3 (4.5-11.0)
[2021-12-04 02:00] VITALS: BP 140/49
[2021-12-04] MEDS: albuterol 2.5 MG/3 ML nebule NEB SCH ×4 (03:00→19:46)
--- NOTE | 2021-12-04 05:53 | NUR ---
I have reviewed and agree with all interventions, assessments performed and documented by Aleksander Champagne LVN.
[2021-12-04 06:00] VITALS: BP 141/58
--- NOTE | 2021-12-04 06:20 | NUR ---
Problems reprioritized. Patient report given, questions answered & plan of care reviewed with Irene DEL CID.
--- NOTE | 2021-12-04 06:20 | NUR ---
Problems reprioritized. Patient report given, questions answered & plan of care reviewed with tomy kevin.
--- NOTE | 2021-12-04 06:42 | NUR ---
Patient in room PCU 3023. I have received report from Graciela DEL CID and had the opportunity to ask questions and assume patient care.
[2021-12-04] MEDS: multivitamins, therapeutics tablet PO SCH (08:56)
[2021-12-04] MEDS: methylPREDNISolone sod succ 125mg/2ml vial IV SCH ×2 (08:56→20:50)
[2021-12-04] MEDS: CefTRIAXone 2gm/NS 100ml IVPB 100 ML IV SCH (08:56)
[2021-12-04] MEDS: metoprolol tartrate 12.5mg (1/2 tablet) PO SCH (08:59)
[2021-12-04] MEDS: docusate sod 100mg capsule PO SCH ×2 (08:59→20:16)
[2021-12-04] MEDS: calcium carbonate/vitamin D3 tablet PO SCH ×2 (09:00→20:16)
[2021-12-04] MEDS: potassium chloride 10mEq ER tablet PO SCH (09:00)
[2021-12-04] MEDS: budesonide 0.5mg/2ml UD nebule IH SCH ×2 (09:00→19:46)
[2021-12-04] MEDS: diltiazem CD 120mg capsule (once-daily) PO SCH (09:00)
[2021-12-04 10:37] LABS: EOSINOPHILS % (AUTO) 0 % (0-6); HEMATOCRIT 24.1 % (42.0-52.0); MEAN PLATELET VOLUME 9.6 FL (7.4-10.4); NEUTROPHILS # (AUTO) 10.9 X10'3 (1.8-7.7); PLATELET COUNT 90 X10'3 (140-440); RED BLOOD COUNT 2.27 X10'6 (4.70-6.10); WHITE BLOOD COUNT 14.7 X10'3 (4.5-11.0)
[2021-12-04 10:39] LABS: BASOPHILS % (AUTO) 0.3 % (0-1); HEMOGLOBIN 7.7 g/dl (14.0-17.9); LYMPHOCYTES # (AUTO) 1.1 X10'3 (1.1-4.8); LYMPHOCYTES % (AUTO) 7.2 % (21-51); MEAN CORPUSCULAR HEMOGLOBIN 34.1 PG (27.0-31.0); MEAN CORPUSCULAR VOLUME 106.3 FL (78-98); MONOCYTES # (AUTO) 2.7 X10'3 (0-0.9); MONOCYTES % (AUTO) 18.6 % (2-12); NEUTROPHILS % (AUTO) 73.9 % (42-75); RED CELL DISTRIBUTION WIDTH 31.1 % (11.5-14.5)
[2021-12-04 10:48] LABS: ALANINE AMINOTRANSFERASE 40 U/L (12-78); ALBUMIN 3.3 G/DL (3.4-5.0); ALBUMIN/GLOBULIN RATIO 1.5 (1.1-1.5); ALKALINE PHOSPHATASE 53 IU/L (46-116); ANION GAP 10 (8-16); ASPARTATE AMINO TRANSFERASE 60 U/L (10-37); BLOOD UREA NITROGEN 37 MG/DL (7-18); BUN/CREATININE RATIO 36.3 (5.4-32.0); CALCIUM 8.5 MG/DL (8.5-10.1); CHLORIDE 107 MMOL/L (99-107); CREATININE 1.02 MG/DL (0.60-1.10); GLUCOSE 128 MG/DL (70-104); POTASSIUM 4.2 MMOL/L (3.5-5.1); SODIUM 141 MMOL/L (135-145); TOTAL CARBON DIOXIDE 23.8 MMOL/L (24-32); TOTAL PROTEIN 5.5 G/DL (6.4-8.2); eGFR 69 ML/MIN
[2021-12-04 11:00] VITALS: BP 140/67
[2021-12-04 11:43] LABS: NUCLEATED RED BLOOD CELLS 16 /100WBC (0-0); POLYCHROMASIA 2+; TOTAL CELLS COUNTED 100
[2021-12-04 11:44] LABS: ANISOCYTOSIS 3+; PLATELET ESTIMATE DECREASED
[2021-12-04 11:45] LABS: SPHEROCYTES 1+
[2021-12-04] MEDS: VANCOmycin 1250MG/NS 250ml Bag 250 ML IV SCH (13:12)
[2021-12-04 15:00] VITALS: BP 149/68
[2021-12-04 18:00] VITALS: BP 148/73
--- NOTE | 2021-12-04 19:00 | NUR ---
Patient in room PCU 3023. I have received report from tray kevin and had the opportunity to ask questions and assume patient care.
--- NOTE | 2021-12-04 19:57 | NUR ---
Patient in room PCU 3023. I have received report from NEHEMIAS Wood and had the opportunity to ask questions and assume patient care.
[2021-12-04] MEDS: atorvastatin 20mg tablet PO SCH (20:16)
[2021-12-04 22:00] VITALS: BP 165/72
--- NOTE | 2021-12-05 02:00 | NUR ---
pt refused 0200 vitals
[2021-12-05] MEDS: albuterol 2.5 MG/3 ML nebule NEB SCH ×3 (03:00→15:34)
[2021-12-05 06:00] VITALS: BP 155/75
--- NOTE | 2021-12-05 06:23 | NUR ---
Problems reprioritized. Patient report given, questions answered & plan of care reviewed with rhea kevin.
--- NOTE | 2021-12-05 06:26 | NUR ---
Problems reprioritized. Patient report given, questions answered & plan of care reviewed with NEHEMIAS Jimenez.
--- NOTE | 2021-12-05 06:32 | NUR ---
Patient in room PCU 3023. I have received report from Royer DEL CID/SIVA león and had the opportunity to ask questions and assume patient care.
[2021-12-05] MEDS: budesonide 0.5mg/2ml UD nebule IH SCH (07:20)
[2021-12-05] MEDS: metoprolol tartrate 12.5mg (1/2 tablet) PO SCH (08:38)
[2021-12-05] MEDS: diltiazem CD 120mg capsule (once-daily) PO SCH (08:38)
[2021-12-05] MEDS: CefTRIAXone 2gm/NS 100ml IVPB 100 ML IV SCH (08:38)
[2021-12-05] MEDS: multivitamins, therapeutics tablet PO SCH (08:38)
[2021-12-05] MEDS: docusate sod 100mg capsule PO SCH (08:38)
[2021-12-05] MEDS: calcium carbonate/vitamin D3 tablet PO SCH (08:38)
[2021-12-05] MEDS: methylPREDNISolone sod succ 125mg/2ml vial IV SCH (08:39)
[2021-12-05 11:00] VITALS: BP 155/76
[2021-12-05] MEDS ORDERED: VANCOMYCIN LEVEL IV ONE (12:30)
[2021-12-05] MEDS: VANCOmycin 1250MG/NS 250ml Bag 250 ML IV SCH (13:51)
[2021-12-05 15:00] VITALS: BP 144/69
--- NOTE | 2021-12-05 16:05 | NUR ---
Problems reprioritized. Patient report given, questions answered & plan of care reviewed with CANDELARIA DEL CID AT [facility].
--- NOTE | 2021-12-05 17:20 | NUR ---
Pt picked up by ambulance to transport to [facility] for continue care. Pt a A & O x4 and in no apparent distress. Report called into [facility] (Kimmy DEL CID) at [facility]. Pt took belongings with him, and send some home with .
== END 2021-12-05 17:16 | DRG 280 ==
LOC: ER 01:33 → ED HOLD 02:50 → PCU 3S 07:32 → OBSVTOIN 13:00
PROVIDERS: ADMIT Internal Medicine; ATTEND Family Medicine
PROC: 02HV33Z Insertion of Infusion Device into Superior Vena Cava, Percutaneous Approach (ICD-10-PCS; 2021-12-02)
PROC: B548ZZA Ultrasonography of Superior Vena Cava, Guidance (ICD-10-PCS; 2021-12-02)
PROC: 30233N1 Transfusion of Nonautologous Red Blood Cells into Peripheral Vein, Percutaneous Approach (ICD-10-PCS; principal; 2021-12-03)
DX: T82.6XXA Infection and inflammatory reaction due to cardiac valve prosthesis, initial encounter (principal); J96.01 Acute respiratory failure with hypoxia; I21.A1 Myocardial infarction type 2; I33.0 Acute and subacute infective endocarditis; N17.0 Acute kidney failure with tubular necrosis; D59.10 Autoimmune hemolytic anemia, unspecified; R44.3 Hallucinations, unspecified; I13.0 Hypertensive heart and chronic kidney disease with heart failure and stage 1 through stage 4 chronic kidney disease, or unspecified chronic kidney disease; I25.119 Atherosclerotic heart disease of native coronary artery with unspecified angina pectoris; Z66 Do not resuscitate; I50.9 Heart failure, unspecified; D69.6 Thrombocytopenia, unspecified; E78.5 Hyperlipidemia, unspecified; M06.9 Rheumatoid arthritis, unspecified; T38.0X5A Adverse effect of glucocorticoids and synthetic analogues, initial encounter; D63.8 Anemia in other chronic diseases classified elsewhere; Z20.822 Contact with and (suspected) exposure to COVID-19; K21.9 Gastro-esophageal reflux disease without esophagitis; N18.9 Chronic kidney disease, unspecified; R79.89 Other specified abnormal findings of blood chemistry; Y83.1 Surgical operation with implant of artificial internal device as the cause of abnormal reaction of the patient, or of later complication, without mention of misadventure at the time of the procedure; R16.1 Splenomegaly, not elsewhere classified; K80.20 Calculus of gallbladder without cholecystitis without obstruction; J44.9 Chronic obstructive pulmonary disease, unspecified; I25.2 Old myocardial infarction; Z90.49 Acquired absence of other specified parts of digestive tract; Z90.79 Acquired absence of other genital organ(s); Z95.1 Presence of aortocoronary bypass graft; Z82.3 Family history of stroke; Z82.5 Family history of asthma and other chronic lower respiratory diseases; Z79.899 Other long term (current) drug therapy; I35.8 Other nonrheumatic aortic valve disorders
CPT/HCPCS: 36415; 36430; 36573; 71045; 74176; 74181; 80048; 80053; 80061; 80076; 80202; 82607; 82948; 83010; 83540; 83550; 83615; 83880; 84443; 84484; 85007; 85025; 85027; 86038; 86157; 86430; 86611; 86638; 86870; 86880; 86885; 86900; 86901; 86902; 86905; 86920; 86922; 87040; 87081; 93005; 93306; 94640; 94760; 96374; 96375; 97116; 97161; 97530; 99285; C1751; G0378; J0696; J1940; J2270; J2405; J2930; J3370; J7040; J7512; P9016

== ENCOUNTER 2022-06-17 07:50 | Inpatient (IN) | payer MEDICARE, OTHER ==
[~2022-06-17] VITALS: Ht 172.7 cm; Wt 72.7 kg
[~2022-06-17 07:50] MED LIST changes: -ADV50250 IH; +CARCD120C PO; -DILT120T14 PO; +FLUT1DIS11 PO; -FOLI0.8C PO; -METO-395 PO; +METO25TA6 PO
[2022-06-17 08:37] LABS: BASOPHILS % (AUTO) 0.1 % (0-1); EOSINOPHILS % (AUTO) 0.2 % (0-6); HEMATOCRIT 24.3 % (42.0-52.0); HEMOGLOBIN 8.3 g/dl (14.0-17.9); LYMPHOCYTES # (AUTO) 0.8 X10'3 (1.1-4.8); LYMPHOCYTES % (AUTO) 7.1 % (21-51); MEAN CORPUSCULAR HEMOGLOBIN 29.8 PG (27.0-31.0); MEAN CORPUSCULAR HGB CONC 34.1 g/dL (33.0-36.5); MEAN CORPUSCULAR VOLUME 87.4 FL (78-98); MEAN PLATELET VOLUME 7.7 FL (7.4-10.4); MONOCYTES # (AUTO) 1.5 X10'3 (0-0.9); MONOCYTES % (AUTO) 12.6 % (2-12); NEUTROPHILS # (AUTO) 9.3 X10'3 (1.8-7.7); PLATELET COUNT 180 X10'3 (140-440); RED BLOOD COUNT 2.78 X10'6 (4.70-6.10); RED CELL DISTRIBUTION WIDTH 13.9 % (11.5-14.5); WHITE BLOOD COUNT 11.7 X10'3 (4.5-11.0)
[2022-06-17] MEDS ORDERED: pantoprazole 40mg IV 80 MG in normal saline 100ml IV soln 100 ML IV ONE (08:40)
[2022-06-17 08:49] LABS: ALANINE AMINOTRANSFERASE 15 U/L (12-78); ALKALINE PHOSPHATASE 61 IU/L (46-116); ANION GAP 7 (8-16); ASPARTATE AMINO TRANSFERASE 20 U/L (10-37); BILIRUBIN,TOTAL 0.6 MG/DL (0.1-1.0); BLOOD UREA NITROGEN 42 MG/DL (7-18); BUN/CREATININE RATIO 30.9 (5.4-32.0); CALCIUM 9.6 MG/DL (8.5-10.1); CHLORIDE 105 MMOL/L (99-107); CREATININE 1.36 MG/DL (0.60-1.10); GLUCOSE 134 MG/DL (70-104); LIPASE 166 U/L (73-393); POTASSIUM 4.6 MMOL/L (3.5-5.1); SODIUM 137 MMOL/L (135-145); TOTAL CARBON DIOXIDE 25.1 MMOL/L (24-32); eGFR 50 ML/MIN
[2022-06-17 08:58] LABS: APTT 33 SECONDS (22-32)
[2022-06-17 09:28] LABS: OCCULT BLOOD STOOL POSITIVE (Neg)
[2022-06-17] MEDS ORDERED: magnesium hydroxide 30ml (MOM) UD suspension PO PRN (10:15)
[2022-06-17] MEDS ORDERED: mag hydrox/Alum hydrox/simeth 30ml oral suspension PO PRN (10:15)
[2022-06-17] MEDS ORDERED: acetaminophen 325mg tablet PO PRN ×2 (10:15)
[2022-06-17] MEDS ORDERED: ondansetron/PF 4mg/2ml inj IV PRN (10:15)
[2022-06-17] MEDS ORDERED: morphine 2 MG/ML inj. syringe IV PRN (10:15)
[2022-06-17] MEDS: pantoprazole 40MG/NS 100ML BAG 100 ML IV SCH ×3 (11:07→19:54)
[2022-06-17] MEDS: normal saline 1000ml 1,000 ML IV SCH ×2 (11:08→20:03)
[2022-06-17] MEDS: morphine 2 MG/ML inj. syringe IV PRN ×2 (12:40→20:00)
--- NOTE | 2022-06-17 13:37 | NUR ---
relieving RN for lunch, pt is resting quietly on hospital bed, no beds available upstairs, pt to remain in ER, resp even and unlabored, pt is GCS 15, alert and oriented
--- NOTE | 2022-06-17 14:21 | NUR ---
Pt being escorted to GI lab for scope, via GI RN
[2022-06-17] MEDS ORDERED: MIDAZolam 1 MG/ML 5ML VIAL ONE (14:25)
[2022-06-17] MEDS ORDERED: fentaNYL/PF 50MCG/1 ML 2ML syringe ONE (14:25)
[2022-06-17] MEDS ORDERED: LIDOcaine Viscous 15ml cup ONE (14:27)
[2022-06-17 14:30] VITALS: BP 153/77
[2022-06-17 14:55] VITALS: BP 148/55
[2022-06-17 15:05] VITALS: BP 133/67
[2022-06-17 15:15] VITALS: BP 142/55
[2022-06-17] MEDS ORDERED: CARV12.549 PO (15:20)
[2022-06-17] MEDS ORDERED: EMPA10TA PO (15:20)
[2022-06-17] MEDS ORDERED: ATOR20TA66 PO (15:20)
[2022-06-17] MEDS ORDERED: ADV50500 PO (15:20)
[2022-06-17] MEDS ORDERED: FURO20TA4 PO (15:20)
[2022-06-17] MEDS ORDERED: NAPR220T67 PO (15:20)
[2022-06-17] MEDS ORDERED: SPIR25TA5 PO (15:20)
[2022-06-17] MEDS ORDERED: ASPI-10 PO (15:20)
[2022-06-17] MEDS ORDERED: OMEP20CA16 PO (15:20)
[2022-06-17 15:25] VITALS: BP 132/64
[2022-06-17 15:38] LABS: CLARITY,URINE CLEAR (Clear); COLOR,URINE YELLOW (Yellow); GLUCOSE, URINE 500 mg/dl (Neg); KETONES,URINE 15 mg/dl (Neg); LEUKOCYTE ESTERASE ,URINE NEGATIVE (Neg); NITRITES, URINE NEGATIVE (Neg); OCCULT BLOOD,URINE NEGATIVE (Neg); PH,URINE 5.5 (4.8-8.0); PROTEIN,URINE TRACE mg/dl (Neg); UROBILINOGEN,URINE 0.2 E.U/dL (0.2-1.0)
--- NOTE | 2022-06-17 15:43 | NUR ---
Pt returning from GI lab w/ RN via wheelchair
[2022-06-17 16:04] LABS: UA COLLECTION TYPE VOIDED
[2022-06-17 16:08] LABS: BACTERIA,URINE FEW /HPF (Neg); MUCUS STRANDS FEW /LPF (Neg); RBC,URINE NONE SEEN /HPF (0-2); SQUAMOUS EPITHELIAL CELL,UR FEW /LPF (FEW); TRANSITIONAL EPI CELLS,URINE FEW /HPF; WBC,URINE 0-4 /HPF (0-4)
[2022-06-17 16:09] LABS: HYALINE CASTS 0-3 /LPF (NEGATIVE)
[2022-06-17] MEDS: docusate sod 100mg capsule PO SCH (19:58)
[2022-06-17 21:27] LABS: BASOPHILS % (AUTO) 0.1 % (0-1); EOSINOPHILS % (AUTO) 0.2 % (0-6); HEMOGLOBIN 7.1 g/dl (14.0-17.9); LYMPHOCYTES # (AUTO) 0.9 X10'3 (1.1-4.8); LYMPHOCYTES % (AUTO) 11.4 % (21-51); MEAN CORPUSCULAR HEMOGLOBIN 29.9 PG (27.0-31.0); MEAN CORPUSCULAR HGB CONC 33.9 g/dL (33.0-36.5); MEAN CORPUSCULAR VOLUME 88.1 FL (78-98); MEAN PLATELET VOLUME 7.9 FL (7.4-10.4); MONOCYTES # (AUTO) 1.4 X10'3 (0-0.9); MONOCYTES % (AUTO) 17.8 % (2-12); NEUTROPHILS # (AUTO) 5.6 X10'3 (1.8-7.7); NEUTROPHILS % (AUTO) 70.5 % (42-75); PLATELET COUNT 152 X10'3 (140-440); RED BLOOD COUNT 2.38 X10'6 (4.70-6.10); RED CELL DISTRIBUTION WIDTH 14.2 % (11.5-14.5); WHITE BLOOD COUNT 7.9 X10'3 (4.5-11.0)
[2022-06-17 22:09] LABS: PLATELET ESTIMATE NORMAL; TOTAL CELLS COUNTED 200
[2022-06-17 22:10] LABS: ELLIPTOCYTES FEW
--- NOTE | 2022-06-17 23:45 | NUR ---
MD called with critical lab result, Hematocrit 21. asked if we wanted to start transfusing a unit of blood.
--- NOTE | 2022-06-18 00:30 | NUR ---
Assumed care of patient.
[2022-06-18] MEDS: pantoprazole 40MG/NS 100ML BAG 100 ML IV SCH ×2 (00:54→04:00)
[2022-06-18] MEDS: morphine 2 MG/ML inj. syringe IV PRN ×4 (02:16→21:23)
--- NOTE | 2022-06-18 07:17 | NUR ---
Report given to NEHEMIAS Foster in PCU.
[2022-06-18] MEDS: docusate sod 100mg capsule PO SCH ×2 (08:00→20:00)
[2022-06-18 09:04] VITALS: BP 129/44
[2022-06-18] MEDS: furosemide 20 MG/2 ML vial IV SCH ×2 (10:25→20:00)
[2022-06-18 11:37] LABS: ALBUMIN 2.5 G/DL (3.4-5.0); ANION GAP 11 (8-16); BLOOD UREA NITROGEN 25 MG/DL (7-18); BUN/CREATININE RATIO 25.5 (5.4-32.0); CALCIUM 8.8 MG/DL (8.5-10.1); CHLORIDE 110 MMOL/L (99-107); CREATININE 0.98 MG/DL (0.60-1.10); GLUCOSE 83 MG/DL (70-104); POTASSIUM 4.3 MMOL/L (3.5-5.1); SODIUM 144 MMOL/L (135-145); TOTAL CARBON DIOXIDE 22.6 MMOL/L (24-32); eGFR 72 ML/MIN
[2022-06-18 11:47] LABS: BASOPHILS % (AUTO) 0.2 % (0-1); EOSINOPHILS % (AUTO) 0.4 % (0-6); HEMOGLOBIN 7.2 g/dl (14.0-17.9); LYMPHOCYTES % (AUTO) 15.8 % (21-51); MEAN CORPUSCULAR HEMOGLOBIN 30.5 PG (27.0-31.0); MEAN CORPUSCULAR VOLUME 89.6 FL (78-98); MEAN PLATELET VOLUME 8.2 FL (7.4-10.4); MONOCYTES % (AUTO) 15.9 % (2-12); NEUTROPHILS # (AUTO) 4.3 X10'3 (1.8-7.7); NEUTROPHILS % (AUTO) 67.7 % (42-75); PLATELET COUNT 146 X10'3 (140-440); RED BLOOD COUNT 2.37 X10'6 (4.70-6.10); RED CELL DISTRIBUTION WIDTH 14.3 % (11.5-14.5); WHITE BLOOD COUNT 6.3 X10'3 (4.5-11.0)
[2022-06-18 12:00] VITALS: BP 129/53
[2022-06-18 12:00] LABS: HEMATOCRIT 21.3 % (42.0-52.0)
[2022-06-18 18:00] VITALS: BP 118/60
[2022-06-18] MEDS: budesonide 0.5mg/2ml UD nebule IH SCH (19:42)
[2022-06-18] MEDS: carVEDilol 12.5mg tablet PO SCH (20:00)
[2022-06-18] MEDS: pantoprazole 40mg Tablet.DR PO SCH (20:00)
[2022-06-18 22:00] VITALS: BP 128/55
[2022-06-19 02:00] VITALS: BP 130/60
[2022-06-19] MEDS: albuterol 2.5 MG/3 ML nebule NEB SCH ×3 (03:00→15:00)
[2022-06-19] MEDS: morphine 2 MG/ML inj. syringe IV PRN ×3 (04:09→12:57)
[2022-06-19 07:00] VITALS: BP 109/54
[2022-06-19 07:22] LABS: BASOPHILS % (AUTO) 0.2 % (0-1); EOSINOPHILS % (AUTO) 0.5 % (0-6); LYMPHOCYTES % (AUTO) 16.8 % (21-51); MEAN CORPUSCULAR HEMOGLOBIN 30.2 PG (27.0-31.0); MEAN CORPUSCULAR HGB CONC 34.3 g/dL (33.0-36.5); MEAN PLATELET VOLUME 8.2 FL (7.4-10.4); MONOCYTES # (AUTO) 1.2 X10'3 (0-0.9); MONOCYTES % (AUTO) 20.4 % (2-12); NEUTROPHILS # (AUTO) 3.7 X10'3 (1.8-7.7); NEUTROPHILS % (AUTO) 62.1 % (42-75); PLATELET COUNT 145 X10'3 (140-440); RED CELL DISTRIBUTION WIDTH 14.4 % (11.5-14.5)
[2022-06-19 07:30] LABS: ALBUMIN 2.5 G/DL (3.4-5.0); ANION GAP 7 (8-16); BLOOD UREA NITROGEN 23 MG/DL (7-18); BUN/CREATININE RATIO 23.7 (5.4-32.0); CALCIUM 8.5 MG/DL (8.5-10.1); CHLORIDE 109 MMOL/L (99-107); CREATININE 0.97 MG/DL (0.60-1.10); GLUCOSE 97 MG/DL (70-104); POTASSIUM 3.8 MMOL/L (3.5-5.1); SODIUM 140 MMOL/L (135-145); TOTAL CARBON DIOXIDE 24.1 MMOL/L (24-32); eGFR 73 ML/MIN
[2022-06-19 07:40] LABS: HEMATOCRIT 20.2 % (42.0-52.0); HEMOGLOBIN 6.9 g/dl (14.0-17.9)
[2022-06-19] MEDS: furosemide 20 MG/2 ML vial IV SCH (08:00)
[2022-06-19] MEDS ORDERED: atorvastatin 20mg tablet PO SCH (08:00)
[2022-06-19] MEDS ORDERED: TRAM50TA2 PO ×2 (08:34)
[2022-06-19] MEDS ORDERED: FURO20TA4 PO ×2 (08:34)
[2022-06-19] MEDS ORDERED: PANT40TA54 PO ×2 (08:34)
[2022-06-19 08:39] LABS: PLATELET ESTIMATE NORMAL; TOTAL CELLS COUNTED 100
[2022-06-19] MEDS: docusate sod 100mg capsule PO SCH (08:39)
[2022-06-19] MEDS: carVEDilol 12.5mg tablet PO SCH (08:39)
[2022-06-19] MEDS: pantoprazole 40mg Tablet.DR PO SCH (08:39)
[2022-06-19] MEDS: budesonide 0.5mg/2ml UD nebule IH SCH (08:57)
[2022-06-19 11:00] VITALS: BP 101/43
[2022-06-19 11:56] VITALS: BP 101/43
[2022-06-19 12:23] VITALS: BP 124/49
[2022-06-23] MEDS ORDERED: SPIR25TA5 PO (15:55)
[2022-06-23] MEDS ORDERED: TRAM50TA2 PO (15:55)
[2022-06-23] MEDS ORDERED: PANT-47 PO (15:55)
--- NOTE | 2022-06-23 19:00 | NUR ---
Spoke with Dr Bauman regarding patient Hgb and HCT. stated he will "take care of it". Rose, PCU Nurse, made aware of critical value and contact with humberto.
== END 2022-06-19 17:08 | disposition home health service (06) | DRG 377 ==
LOC: ER 07:51 → ED HOLD 10:15 → EDBEDREQ 22:13 → PCU 3S 06-18 08:50
PROVIDERS: ADMIT Internal Medicine; ATTEND Internal Medicine
PROC: 0DB78ZX Excision of Stomach, Pylorus, Via Natural or Artificial Opening Endoscopic, Diagnostic (ICD-10-PCS; principal; 2022-06-17)
PROC: 30233N1 Transfusion of Nonautologous Red Blood Cells into Peripheral Vein, Percutaneous Approach (ICD-10-PCS; 2022-06-19)
DX: K29.71 Gastritis, unspecified, with bleeding (principal); I50.23 Acute on chronic systolic (congestive) heart failure; N17.0 Acute kidney failure with tubular necrosis; D62 Acute posthemorrhagic anemia; J96.11 Chronic respiratory failure with hypoxia; K25.4 Chronic or unspecified gastric ulcer with hemorrhage; K26.4 Chronic or unspecified duodenal ulcer with hemorrhage; Z66 Do not resuscitate; E78.5 Hyperlipidemia, unspecified; I11.0 Hypertensive heart disease with heart failure; I25.10 Atherosclerotic heart disease of native coronary artery without angina pectoris; J44.9 Chronic obstructive pulmonary disease, unspecified; M06.9 Rheumatoid arthritis, unspecified; M19.071 Primary osteoarthritis, right ankle and foot; I25.2 Old myocardial infarction; Z79.84 Long term (current) use of oral hypoglycemic drugs; Z79.899 Other long term (current) drug therapy; Z87.891 Personal history of nicotine dependence; Z82.3 Family history of stroke; Z82.5 Family history of asthma and other chronic lower respiratory diseases; Z82.49 Family history of ischemic heart disease and other diseases of the circulatory system; Z79.82 Long term (current) use of aspirin
CPT/HCPCS: 36415; 36430; 43239; 71045; 80048; 80053; 81001; 82272; 83690; 83880; 85007; 85025; 85610; 85730; 86885; 86900; 86901; 86922; 87070; 87075; 88305; 88342; 93005; 94640; 94760; 96365; 99152; 99285; A4620; A6222; C9113; G0378; J1940; J2250; J2270; J3010; J3490; J7030; P9016